=== PATIENT | female | born 1945 | race Caucasian/White ===

== ENCOUNTER 2017-08-07 09:55 | Day surgery (SDC) | payer OTHER ==
[~2017-08-07 09:55] MED LIST: HYDR-3580 PO; TIZA4TAB
[2017-08-07] MEDS ORDERED: LIDOCAINE HCL 1% 20 ML VIAL ONE ×3 (10:27→11:08)
[2017-08-07] MEDS ORDERED: TRIAMCINOLONE ACETONIDE 40 MG/ML VIAL ONE ×2 (12:44)
--- NOTE | 2017-08-07 12:45 | RADRPT ---
EXAM DATE/TIME: 08/07/2017 10:49 [place] COMPARISON: No previous studies available for comparison. INDICATIONS : Bilateral SI joint pain. CONTRAST: 2 cc Omnipaque (iohexanol) 350 MEDICATION(S): 1.) 2 mg Kenalog DEVICE(S): 1.) 25g spinal MEDICAL HISTORY : Osteoporosis. SURGICAL HISTORY : Hysterectomy. ENCOUNTER: Initial ACUITY: > 1 yr PAIN SCORE: 5/10 LOCATION: Bilateral pelvis PROCEDURE: PROCEDURE : CT guided SI joint injection bilaterally. The risks, benefits and alternatives to the procedure were explained and verbal and written consent w as obtained. Using automated exposure control and adjustment of the mA and/or kV according to patien t size, radiation dose was kept as low as reasonably achievable to obtain optimal diagnostic quality images. The site was prepped in sterile fashion. Full sterile technique was used, including cap, ma sk, sterile gloves and gown and a large sterile sheet. Hand hygiene and 2% chlorhexidine and/or beta dine/alcohol prep was utilized per protocol for cutaneous antisepsis. The skin and subcutaneous tiss ues were infiltrated with local anesthetic solution. DICOM format image data is available electronic ally for review and comparison. The patient was positioned prone. After localizing the areas over the SI joints, 25 gauge spinal need les were advanced into the joint spaces. Position was confirmed with positive contrast. A total of 1 cc of lidocaine and 40 mg of Kenalog were injected into each SI joint. There was reproduction of the patient's baseline clinical symptoms with the right-sided injection. Preprocedural pain level reporte d that 5/10. Postprocedural pain level 0/10 CONCLUSION: Uncomplicated bilateral SI joint injection as above. Yousuf Soler MD on August 07, 2017 at 12:39 Board Certified Radiologist. This report was verified electronically.
== END 2017-08-07 11:45 | disposition home or self-care (01) ==
LOC: HRAD 09:55 → HRIP 10:13 → HRAD 11:45
PROVIDERS: ATTEND Physician Assistant
DX: M46.1 Sacroiliitis, not elsewhere classified (principal); M25.551 Pain in right hip; M25.552 Pain in left hip
CPT/HCPCS: 27096; 77012; J3301; 96372